=== PATIENT | male | born 1950 | race Hispanic/Latino ===

== ENCOUNTER 2017-10-09 10:26 | Day surgery (SDC) | payer BC ==
[2014-09-26 11:06] VITALS: BMI 28.7
[2017-10-09] MEDS ORDERED: Sodium Chloride 0.9% 1,000 ML IV SCH (11:00)
[2017-10-09] MEDS ORDERED: Benzocaine/Butamben/Tetracai 14-2-2% TOP Spray TOP ONE (11:54)
[2017-10-09 12:39] VITALS: TEMP 98.3
[2017-10-09 13:45] VITALS: BP 108/53; PULSE 46; RESP 18; O2SAT 96
== END 2017-10-09 13:41 | disposition home or self-care (01) ==
LOC: ENDO 10:26
PROVIDERS: ATTEND Internal Medicine Gastroenterology
DX: K29.50 Unspecified chronic gastritis without bleeding (principal); K21.9 Gastro-esophageal reflux disease without esophagitis
CPT/HCPCS: 43239; 88305; 88312; 88342; J7040 ×2